=== PATIENT | male | born 1970 | race Caucasian/White ===

== ENCOUNTER → 2016-12-31 | Outpatient (CLI) | payer OTHER ==
--- NOTE | 2016-12-31 08:48 | RAD ---
Exam: PA and lateral chest radiograph History: Cough, congestion, headache for 3 days. Comparison: 11/01/2015. Findings: Cardiomediastinal silhouette is within normal limits for size. On the lateral view, there is increased density projecting over the lower thoracic spinal (summation sign). This probably corresponds to the left lower lobe on the frontal view. Findings are compatible with the left lower lobe infiltrate. No pleural effusion is seen. Impression: Left lower lobe infiltrate.
== END | disposition home or self-care (01) ==
LOC: DXRADRC 08:34
PROVIDERS: ATTEND Physician Assistant Medical
DX: R91.8 Other nonspecific abnormal finding of lung field (principal); J02.9 Acute pharyngitis, unspecified; R05 Cough
CPT/HCPCS: 71020

== ENCOUNTER → 2020-07-26 | Outpatient (CLI) | payer OTHER, BC ==
--- NOTE | 2020-07-26 17:42 | RAD ---
L-spine 3 views INDICATION: Back pain COMPARISON: None. FINDINGS: 5 lumbar type vertebrae in anatomic alignment. No fracture or aggressive osseous lesions. The discs are preserved in height. The facet joints show no fracture or jumped facets. There are mild facet hypertrophic changes at the L4-L5 and L5-S1 levels. These do not result in significant bony central canal or foraminal stenosis by x-ray. The sacroiliac joints and visualized hips are unremarkable as well. The soft tissues reveal no additional unexpected findings. IMPRESSION: Minimal facet degenerative change in the lower lumbar spine with no acute osseous abnormality noted. Electronically signed by: Hiral Doherty MD (07/26/2020 5:39 PM) [id number]
== END ==
LOC: RAD 16:56
PROVIDERS: ATTEND Family Medicine
DX: M47.816 Spondylosis without myelopathy or radiculopathy, lumbar region (principal); Z68.43 Body mass index [BMI] 50.0-59.9, adult
CPT/HCPCS: 72100